=== PATIENT | male | born 1955 | race Caucasian/White ===

== ENCOUNTER 2017-04-18 18:17 | Inpatient (IN) | payer MEDICARE ==
[~2017-04-18] VITALS: Ht 180.3 cm; Wt 97.7 kg
[2017-04-18 18:49] LABS: BASOPHILS % 0.7 % (0.0-2.0); HEMATOCRIT. 35.8 % (42.0-52.0); HEMOGLOBIN. 11.9 g/dL (14.0-18.0); LYMPHOCYTES % 18.7 % (20.0-50.0); MEAN CORPUSCULAR HEMOGLOBIN 26.8 pg (28.0-32.0); MEAN CORPUSCULAR VOLUME 80.3 fL (80.0-94.0); MEAN PLATELET VOLUME 7.4 fl (7.4-10.4); MONOCYTES % 7.2 % (2.0-8.0); NEUTROPHILS % 70.4 % (40.0-76.0); PLATELET 242 x1000/uL (130-400); RED BLOOD CELL COUNT 4.47 mill/uL (4.7-6.1); RED CELL DISTRIBUTION WIDTH 14.7 % (11.6-14.6)
[2017-04-18 18:58] LABS: PARTIAL THROMBOPLASTIN TIME 26.8 sec (23.4-31.0); PROTHROMBIN TIME 10.8 sec (9.4-11.6)
[2017-04-18] MEDS ORDERED: NITROGLYCERIN OINT 1GM/INCH UDPKT TD ONE (19:00)
[2017-04-18 19:07] LABS: CHLORIDE 100 mEq/L (98-107)
[2017-04-18] MEDS ORDERED: ONDANSETRON HCL 4MG/2ML INJ IV ONE (19:30)
[2017-04-18] MEDS ORDERED: PANTOPRAZOLE SODIUM 40 MG/VIAL IV ONE (19:30)
[2017-04-18] MEDS ORDERED: CLONIDINE 0.1MG TABLET PO PRN (22:30)
[2017-04-18] MEDS ORDERED: HYDROCODONE/APAP 7.5/325MG 1 TAB TABLET PO PRN (22:30)
[2017-04-18] MEDS ORDERED: IPRATROPIUM/ALBUTEROL 0.5-3(2.5)MG/3ML NEB INH PRN (22:30)
[2017-04-18] MEDS ORDERED: DOCUSATE SODIUM 100MG CAPSULE PO PRN (22:30)
[2017-04-18] MEDS ORDERED: MORPHINE SULFATE 4 MG/ML CPJ (NOT FOR IM USE) IV PRN (22:30)
[2017-04-18] MEDS ORDERED: ACETAMINOPHEN 325MG TABLET PO PRN (22:30)
[2017-04-18] MEDS ORDERED: NA PHOS,M-B/NA PHOS,DI-BA ENEMA 118ML PR PRN (22:30)
[2017-04-18] MEDS ORDERED: GUAIFENESIN 200MG/10ML SUGAR FREE UDC PO PRN (22:30)
[2017-04-18] MEDS ORDERED: DIPHENHYDRAMINE 50MG/ML VIAL IV PRN (22:30)
[2017-04-19] VITALS (7 sets, daily range): BP systolic 112–122; BP diastolic 71–82
[2017-04-19] MEDS ORDERED: BUSP15TA3 PO (00:33)
[2017-04-19] MEDS ORDERED: PARO-41 PO (00:33)
[2017-04-19] MEDS ORDERED: CARV6.2548 PO (00:33)
[2017-04-19] MEDS ORDERED: LISI10TA5 PO (00:33)
[2017-04-19] MEDS ORDERED: PANT40TA4 PO (00:33)
[2017-04-19] MEDS ORDERED: MONT10TA24 PO (00:33)
[2017-04-19] MEDS ORDERED: QUET50TA13 PO (00:33)
[2017-04-19] MEDS ORDERED: ATOR20TA65 PO (00:33)
[2017-04-19] MEDS ORDERED: TRAZ-212 PO (00:33)
[2017-04-19 03:14] LABS: CHLORIDE 101 mEq/L (98-107)
[2017-04-19] MEDS ORDERED: QUETIAPINE FUMARATE 50 MG PO SCH (07:00)
[2017-04-19] MEDS: ENOXAPARIN 40MG/0.4ML SYR SUBCUT SCH (08:18)
[2017-04-19] MEDS: CARVEDILOL 6.25 MG TABLET PO SCH (08:18)
[2017-04-19] MEDS: PANTOPRAZOLE 40MG DR TABLET PO SCH (08:18)
[2017-04-19] MEDS: ASPIRIN 81MG EC TABLET PO SCH (08:18)
[2017-04-19] MEDS: LISINOPRIL 10MG TABLET PO SCH (08:19)
[2017-04-19] MEDS: PAROXETINE HCL 10MG TABLET PO SCH (08:19)
[2017-04-19] MEDS: BUSPIRONE HCL 5MG TABLET PO SCH (08:19)
[2017-04-19] MEDS: LORAZEPAM 2MG/ML CPJ IV PRN ×4 (08:25→21:04)
[2017-04-19] MEDS ORDERED: MEDICATION NOT ON FORMULARY EA (Buspirone Hcl 15 MG) PO SCH (09:00)
[2017-04-19 09:30] LABS: BASOPHILS % 0.8 % (0.0-2.0); EOSINOPHILS % 5.8 % (0.0-5.0); HEMATOCRIT. 35.2 % (42.0-52.0); HEMOGLOBIN. 11.3 g/dL (14.0-18.0); LYMPHOCYTES % 27.1 % (20.0-50.0); MEAN CORPUSCULAR HEMOGLOBIN 26.2 pg (28.0-32.0); MEAN CORPUSCULAR VOLUME 81.3 fL (80.0-94.0); MEAN PLATELET VOLUME 8.1 fl (7.4-10.4); MONOCYTES % 11.4 % (2.0-8.0); NEUTROPHILS % 54.9 % (40.0-76.0); PLATELET 228 x1000/uL (130-400); RED BLOOD CELL COUNT 4.33 mill/uL (4.7-6.1); RED CELL DISTRIBUTION WIDTH 14.5 % (11.6-14.6)
[2017-04-19 09:58] LABS: CHLORIDE 97 mEq/L (98-107)
[2017-04-19 10:05] LABS: HDL CHOLESTEROL 46 mg/dL (40-59); LDL CHOLESTEROL 95 mg/dL (5-100)
[2017-04-19] MEDS: MAGNESIUM/ALUMINUM HYDROXIDE/SIMETHICONE 30ML UDC PO PRN (12:10)
[2017-04-19] MEDS: ONDANSETRON HCL 4MG/2ML INJ IV PRN (12:13)
[2017-04-19] MEDS: MONTELUKAST SODIUM 10MG TABLET PO SCH (21:03)
[2017-04-19] MEDS: TRAZODONE HCL 50MG TABLET PO SCH (21:04)
[2017-04-19] MEDS: ATORVASTATIN CALCIUM 20MG TABLET PO SCH (21:04)
[2017-04-20] VITALS: BP 125/84
[2017-04-20] MEDS: LORAZEPAM 2MG/ML CPJ IV PRN ×3 (02:12→12:33)
[2017-04-20 04:00] VITALS: BP 96/49
[2017-04-20] MEDS: PANTOPRAZOLE 40MG DR TABLET PO SCH (06:53)
[2017-04-20 07:15] VITALS: BP 129/81
[2017-04-20] MEDS: ENOXAPARIN 40MG/0.4ML SYR SUBCUT SCH (09:00)
[2017-04-20] MEDS: BUSPIRONE HCL 5MG TABLET PO SCH (09:00)
[2017-04-20] MEDS: PAROXETINE HCL 10MG TABLET PO SCH (09:00)
[2017-04-20] MEDS ORDERED: REGADENOSON 0.4 MG/5 ML IV ONE ×2 (09:00→10:50)
[2017-04-20] MEDS: ASPIRIN 81MG EC TABLET PO SCH (09:00)
[2017-04-20] MEDS: LISINOPRIL 10MG TABLET PO SCH (09:29)
[2017-04-20] MEDS: CARVEDILOL 6.25 MG TABLET PO SCH (09:29)
[2017-04-20 11:20] VITALS: BP 144/94
[2017-04-20] MEDS ORDERED: SODIUM CHLORIDE 0.9% 10ML VIAL ONE (15:22)
[2017-04-20 15:45] VITALS: BP 134/90
[2017-04-20] MEDS: LORAZEPAM 0.5MG TABLET PO PRN ×2 (19:17→23:10)
[2017-04-20 20:00] VITALS: BP 128/91
[2017-04-20] MEDS: MONTELUKAST SODIUM 10MG TABLET PO SCH (20:36)
[2017-04-20] MEDS: MAGNESIUM/ALUMINUM HYDROXIDE/SIMETHICONE 30ML UDC PO PRN (20:36)
[2017-04-20] MEDS: ATORVASTATIN CALCIUM 20MG TABLET PO SCH (20:36)
[2017-04-20] MEDS: TRAZODONE HCL 50MG TABLET PO SCH (20:37)
[2017-04-20] MEDS: ONDANSETRON HCL 4MG/2ML INJ IV PRN (23:10)
[2017-04-21] VITALS: BP 123/79
[2017-04-21 04:00] VITALS: BP 135/87
[2017-04-21] MEDS: LORAZEPAM 0.5MG TABLET PO PRN (06:01)
[2017-04-21] MEDS: PANTOPRAZOLE 40MG DR TABLET PO SCH (06:01)
[2017-04-21] MEDS: ASPIRIN 81MG EC TABLET PO SCH (08:58)
[2017-04-21] MEDS: CARVEDILOL 6.25 MG TABLET PO SCH (08:59)
[2017-04-21] MEDS: BUSPIRONE HCL 5MG TABLET PO SCH (08:59)
[2017-04-21] MEDS: PAROXETINE HCL 10MG TABLET PO SCH (08:59)
[2017-04-21] MEDS: LISINOPRIL 10MG TABLET PO SCH (09:00)
[2017-04-21] MEDS: ENOXAPARIN 40MG/0.4ML SYR SUBCUT SCH (09:01)
[2017-04-21 10:14] VITALS: BP 141/95
[2017-04-21] MEDS: ONDANSETRON HCL 4MG/2ML INJ IV PRN (10:36)
== END 2017-04-21 11:45 | disposition home or self-care (01) | DRG 206 ==
LOC: ER 18:17 → 5WST 19:49 → ENRESERV 23:08
PROVIDERS: ADMIT Internal Medicine; ATTEND Internal Medicine
DX: M94.0 Chondrocostal junction syndrome [Tietze] (principal); E78.5 Hyperlipidemia, unspecified; I25.10 Atherosclerotic heart disease of native coronary artery without angina pectoris; I10 Essential (primary) hypertension; Z79.899 Other long term (current) drug therapy; Z86.73 Personal history of transient ischemic attack (TIA), and cerebral infarction without residual deficits; I25.2 Old myocardial infarction
CPT/HCPCS: 36415; 71045; 78452; 80048; 80061; 83880; 84484; 93005; 93017; 93970; 96374; 96375; 99285; A9500; C9113; J1650; J2060; J2405; J2785